=== PATIENT | female | born 1930 | race Caucasian/White ===

== ENCOUNTER 2021-09-13 15:16 | Emergency (ER) | payer MEDICARE, SELFPAY ==
[~2021-09-13] VITALS: Ht 154.9 cm; Wt 40.8 kg
[2021-09-13 15:16] VITALS: BP_SYST 149
[2021-09-13] MEDS ORDERED: ONDANSETRON HCL 4 MG/2 ML VIAL IM ONE (15:45)
[2021-09-13 15:55] LABS: BASOPHILS % (AUTO) 0.1 % (0.0-2.0); HEMOGLOBIN 10.6 g/dL (12.0-16.0); LYMPHOCYTES # (AUTO) 0.6 K/uL (1.0-5.5); LYMPHOCYTES % (AUTO) 3.3 % (20.5-51.5); MEAN CORPUSCULAR HEMOGLOBIN 25 pg (27-31); MEAN CORPUSCULAR HGB CONC 31 % (32-36); MEAN CORPUSCULAR VOLUME 79 fL (79.0-98.0); MONOCYTES # (AUTO) 1.5 K/uL (0.0-1.0); MONOCYTES % (AUTO) 8.5 % (1.7-9.3); NEUTROPHILS % (AUTO) 88.1 % (40.0-70.0); PLATELET COUNT (AUTO) 587 K/uL (130-430); RED BLOOD CELL COUNT(AUTO) 4.33 MIL/uL (4.2-6.2); RED CELL DISTRIBUTION WIDTH 16.2 % (9.0-15.0)
[2021-09-13 16:20] LABS: ANION GAP 9 (5-15); CHLORIDE 104 mmol/L (98-107); POTASSIUM 4.7 mmol/L (3.5-5.1); SODIUM SERUM 142 mmol/L (136-145)
[2021-09-13 16:21] LABS: CALCIUM 10.2 mg/dL (8.4-11.0); CREATININE 1.11 mg/dL (0.55-1.30); GLUCOSE 147 mg/dL (70-99); UREA NITROGEN, BLOOD 40 mg/dL (8-21)
[2021-09-13 16:22] LABS: ASPARTATE AMINOTRANSFERASE 23 U/L (10-37); TOTAL BILIRUBIN 0.4 mg/dL (0.0-1.0)
[2021-09-13 16:23] LABS: ALANINE AMINOTRANSFERASE 26 U/L (12-78); ALBUMIN 2.3 g/dL (3.4-4.8); AMYLASE 123 U/L (0-100); LACTATE DEHYDROGENASE 185 U/L (81-234); LIPASE 230 U/L (73-393)
[2021-09-13 16:27] LABS: BILIRUBIN,URINE NEGATIVE (NEGATIVE); CLARITY/URINE HAZY (CLEAR); COLOR,URINE YELLOW (YELLOW); GLUCOSE,URINE NEGATIVE (NEGATIVE); KETONES,URINE NEGATIVE (NEGATIVE); PROTEIN URINE 2+ (NEGATIVE)
[2021-09-13 16:28] LABS: BLOOD, URINE 3+ (NEGATIVE); LEUKOCYTE ESTERASE ,URINE TRACE (NEGATIVE); NITRITE, URINE NEGATIVE (NEGATIVE)
[2021-09-13 16:29] LABS: BACTERIA,URINE MANY /HPF (None Seen); MUCUS,URINE None Seen /LPF (None Seen)
[2021-09-13 16:42] LABS: C-REACTIVE PROTEIN QUANT 30.5 mg/dL (0-0.5)
[2021-09-13] MEDS ORDERED: NACL 0.9% 1,000 ML IV ONE (17:30)
[2021-09-13] MEDS ORDERED: SODIUM PHOSPHATE,MONO-DIBASIC 133 ML ENEMA RC ONE (18:00)
[2021-09-13] MEDS ORDERED: cefTRIAXone 1 GM IVPB PREMIX 50 ML IV ONE (18:15)
[2021-09-13] MEDS ORDERED: IBUP-1969 PO (19:48)
[2021-09-13 23:09] VITALS: BP_SYST 114
== END 2021-09-13 23:09 | disposition short-term general hospital (02) ==
LOC: SED 15:16
DX: D72.829 Elevated white blood cell count, unspecified (principal); R11.2 Nausea with vomiting, unspecified; Z79.899 Other long term (current) drug therapy; Z20.822 Contact with and (suspected) exposure to COVID-19
CPT/HCPCS: 36415; 71045; 74176; 76376; 80053; 81000; 82150; 83605; 83615; 83690; 84484; 85025; 86140; 87040; 87086; 87426; 93005; 96361; 96365; 96372; 99285; J0696; J2405; J7030